=== PATIENT | female | born 1940 | race Caucasian/White ===

== ENCOUNTER 2017-02-08 10:14 | Inpatient (IN) ==
[2017-02-08] MEDS ORDERED: NS 500 ML IV ONE (10:34)
--- NOTE | 2017-02-08 11:04 | Diag Imaging Result Doc PS360 ---
EXAM: CHEST-PORTABLE HISTORY: cough/weakness TECHNIQUE: AP portable at 1045 COMMENT: Compared to 06/25/2013 the opacity previously demonstrated laterally over the left upper lobe is no longer present. The heart size and pulmonary vascularity are within normal limits. IMPRESSION: No acute disease. Electronically signed by Paco Smith 02/08/2017 11:01 AM
[2017-02-08 11:54] LABS: INR 0.98; PROTIME 10.3 Seconds (9.2-11.7); PTT 33.5 Seconds (22.0-36.0)
[2017-02-08 12:05] LABS: ALBUMIN 3.7 g/dL (3.5-5.0); CALCIUM 8.7 mg/dL (8.8-10.2); MAGNESIUM 1.3 mg/dL (1.5-2.7); TOTAL BILIRUBIN 0.84 mg/dL (0.20-1.00); TOTAL PROTEIN 8.1 g/dL (6.3-8.3)
[2017-02-08 12:11] LABS: BASO% 0.1 % (0.0-0.8); HEMATOCRIT 36.3 % (37.0-47.0); HEMOGLOBIN 12.2 g/dL (12.0-16.0); IMM GRAN# 0.06 X1000 (0.0-0.04); IMM GRAN% 0.3 % (0.0-0.5); LYMPH# 0.43 X1000 (1.2-3.4); LYMPH% 2.5 % (20.5-51.1); MANUAL DIFF NEEDED? NO; MCH 31.4 PG (27-31); MCHC 33.6 g/dL (33-37); MCV 93.3 FL (81-99); MONO# 1.48 X1000 (0.11-0.59); MONO% 8.5 % (1.7-9.3); MPV 10.4 FL (7.4-10.4); NEUT% 88.6 % (42.2-75.2); PLT 291 X1000 (130-400); RBC 3.89 XMIL (4.2-5.4)
--- NOTE | 2017-02-08 12:18 | Diag Imaging Result Doc PS360 ---
EXAM: CT HEAD W/O CONTRAST HISTORY: weakness TECHNIQUE: CT of the head without contrast with dose reduction (clarity.) COMMENT: There has been previous frontotemporal craniotomy. There is a aneurysm clip superoposterior to the anterior clinoid on the left. There is some encephalomalacia in the temporal tip on the left. There is extensive encephalomalacia in the insula and basal ganglia on the left. There is ex vacuo enlargement of the left lateral ventricle present and there is lucency in the morfin radiata and centrum semiovale on the left as well. IMPRESSION: Postsurgical and encephalomalacic changes on the left. No evidence of acute disease. Electronically signed by Paco Smith 02/08/2017 12:15 PM
--- NOTE | 2017-02-08 12:25 | Diag Imaging Result Doc PS360 ---
EXAM: CT ABDOMEN/PELVIS W/O CONTRAST HISTORY: abd pain TECHNIQUE: CT urogram without contrast COMMENT: There are no previous studies. There is no evidence of acute disease in the visualized portion of the chest. There are granulomata in the liver and spleen. Both adrenal glands are somewhat enlarged in appearance suggesting hyperplasia. There is no evidence of hydronephrosis although there may be some parapelvic cysts or localized caliectasis in the lower pole of the right kidney. No stones are demonstrated. The urinary bladder is slightly distended. There is no evidence of ureterolithiasis or bladder stones. The appendix is not identified. There is been cholecystectomy. There is no evidence of bowel obstruction. There is no evidence of free fluid. There is some stranding in the retroperitoneal soft tissues anterior to the infrarenal abdominal aorta. The aorta is calcified but not distended in appearance. The possibility of retroperitoneal fibrosis cannot be excluded. No acute bony abnormalities are present. There is dense calcification the mitral valve annulus. IMPRESSION: No evidence of stones or obstruction. Nonspecific and chronic findings as described above. Electronically signed by Paco Smith 02/08/2017 12:22 PM
[2017-02-08] MEDS: NS 1,000 ML IV SCH (12:37)
[2017-02-08 12:58] LABS: URINE CULTURE NEEDED? NO; URINE MICRO REVIEW NEEDED? NO; URINE SOURCE CATH
[2017-02-08 13:01] LABS: BILIRUBIN URINE NEGATIVE (NEGATIVE); BLOOD URINE NEGATIVE (NEGATIVE); COLOR YELLOW; GLUCOSE URINE 200 mg/dL (NEGATIVE); LEUKOCYTES URINE NEGATIVE (NEGATIVE); NITRITE URINE NEGATIVE (NEGATIVE); PH URINE 6.5; PROTEIN URINE 200 mg/dL (NEGATIVE); SP GRAVITY URINE 1.013; TURBIDITY URINE CLEAR (CLEAR); UR EPITHELIAL CELLS <10 /HPF (<10); URINE BACTERIA NEGATIVE /HPF; URINE RBC <10 /HPF (<10); URINE WBC <10 /HPF (<10); UROBILINOGEN URINE NORMAL (NORMAL)
--- NOTE | 2017-02-08 14:15 | PROVIDER DOCUMENTATION ---
This chart was entered by Rima Wolf Scribe, acting as scribe for Shane Light PA. HPI-General Adult - General Chief Complaint: Weakness Stated Complaint: welfare check Time Seen by Provider: 02/08/17 10:21 Source: patient Allergies/Adverse Reactions: Patient Allergies Allergy/AdvReac Type Severity Reaction Status Date / Time Penicillins AdvReac nausea and Verified 02/08/17 11:22 vomiting Home Medications: Home Medication List Medication Instructions Recorded Confirmed Last Taken Type Metformin E.r. [Glucophage Xr] 1,500 mg PO QHS 06/25/13 02/08/17 06/24/13 20:00 History Pravastatin Sodium 40 mg PO DAILY 06/25/13 02/08/17 06/24/13 20:00 History Albuterol Sulfate [Proair Hfa] 8.5 gm IH PRN PRN 02/08/17 02/08/17 Unknown History Citalopram [Celexa] 40 mg PO DAILY 02/08/17 02/08/17 Unknown History Glimepiride 2 mg PO DAILY 02/08/17 02/08/17 Unknown History Lisinopril 5 mg PO DAILY 02/08/17 02/08/17 Unknown History Polyethylene Glycol 3350 17 gm PO DAILY 02/08/17 02/08/17 Unknown History [Polyethylene Glycol] - History of Present Illness -Gen Adult Nature of Presenting Problems: pt is a 76 year old female who came to the ED with a cc of weakness and cough for three days. Pt was found in the bed with bowel all over her because she has been in the bed for three days. Location of Pain/Injury: reports: abdomen Pain Radiation: reports: no radiation Quality of Pain: reports: cramping Severity: reports: moderate Onset/Duration: reports: 3 days ago Timing: reports: still present Context/Activities at Onset: reports: none Modifying Factors: improves with: nothing Associated Symptoms: reports: weakness Similar Symptoms Previously?: No Recently seen or treated by another doctor?: No Review of Systems - Adult - REVIEW OF SYSTEMS - ADULT Constitutional: reports: cecilia. denies: chills, fever Ears, Nose, Mouth & Throat: denies: sinus problem, loose teeth Cardiovascular: denies: irregular heart rate, syncope Gastrointestinal: reports: abdominal pain. denies: diarrhea, nausea, vomiting Genitourinary: denies: hematuria, urgency Past History - Adult - PAST MEDICAL HISTORY-ADULT Review of Records: reports: Old Records Reviewed, Nursing Assessment Review Major Childhood Illnesses: reports: denies history Cardiovascular: reports: denies history Respiratory: reports: denies history Gastrointestinal: reports: denies history Obstetrical/Gynecological: reports: denies history Genitourinary: reports: denies history Musculoskeletal: reports: denies history Neurological: reports: denies history Endocrine/Immune: reports: Diabetes Other Conditions: reports: denies history - IMMUNIZATION STATUS Childhood Immunizations: See Nurse Assessment Flu Vaccine: See Nurse Assessment - FAMILY HISTORY Family History: reviewed, not pertinent Physical Exam-General - PHYSICAL EXAM-ADULT Initial Vital Signs Reviewed: Yes - CONSTITUTIONAL General Appearance: alert, mild distress - EYES Eyes: PERRL/EOMI, pink conjunctivae - HEAD, EARS, NOSE, MOUTH & THROAT HENMT: normocephalic/atraumatic, moist mucous membranes - NECK Neck: non-tender, full range of motion - RESPIRATORY Respiratory: chest non-tender, lungs clear, normal breath sounds - CARDIOVASCULAR Cardiovascular: normal peripheral pulses, regular rate, rhythm - GASTROINTESTINAL (ABDOMEN) Abdominal Exam: normal bowel sounds, non tender, soft - MUSCULOSKELETAL Back Exam: normal inspection, no CVA tenderness Extremity: normal range of motion, non-tender - SKIN Integumentary: normal color, normal turgor - NEUROLOGIC Neurologic: grossly normal - PSYCHIATRIC Psych/Mental Status: normal mood/affect, normal thought content, normal thought process, oriented x 3 Progress - PLAN OF CARE/RESULTS Progress/Plan/Lab Results: Vital Signs - 8 hr 02/08/17 10:55 Temperature 99.6 F Pulse Rate 96 H Respiratory Rate 20 Blood Pressure 148/64 O2 Sat by Pulse Oximetry 93 L Laboratory Results - last 24 hr 02/08/17 02/08/17 02/08/17 11:26 11:26 11:26 WBC 17.39 H RBC 3.89 L Hgb 12.2 Hct 36.3 L MCV 93.3 MCH 31.4 H MCHC 33.6 RDW Std Deviation 12.2 Plt Count 291 MPV 10.4 Immature Gran % (Auto) 0.3 Neut % (Auto) 88.6 H Lymph % (Auto) 2.5 L [place] % (Auto) 8.5 Eos % (Auto) 0.0 Baso % (Auto) 0.1 Immature Gran # (Auto) 0.06 H Neut # (Auto) 15.40 H Lymph # (Auto) 0.43 L [place] # (Auto) 1.48 H Eos # (Auto) 0.00 Baso # (Auto) 0.02 PT INR PTT (Actin FS) Sodium 127 L Potassium 4.0 Chloride 87 L Carbon Dioxide 23 L Anion Gap 17 BUN 21 Creatinine 1.9 H Estimated GFR/1.73 m2 26 BUN/Creatinine Ratio 11 Glucose 239 H Calculated Osmolality 266 Calcium 8.7 L Magnesium 1.3 L Total Bilirubin 0.84 AST 55 H ALT 33 Alkaline Phosphatase 86 Creatine Kinase 79 Troponin T Zqa-X-Lyskasoydor Pept 7897 H Total Protein 8.1 Albumin 3.7 Globulin 4.4 Albumin/Globulin Ratio 0.8 Urine Source Urine Color Urine Turbidity Urine pH Ur Specific [place] Urine Protein Ur Glucose (Stick) Ur Ketones (Stick) Urine Blood Urine Nitrite Urine Bilirubin Urobilinogen Dipstick Urine Leukocytes Urine WBC (Auto) Urine RBC (Auto) U Epithel Cells (Auto) Urine Bacteria (Auto) 02/08/17 02/08/17 02/08/17 11:26 11:26 12:41 WBC RBC Hgb Hct MCV MCH MCHC RDW Std Deviation Plt Count MPV Immature Gran % (Auto) Neut % (Auto) Lymph % (Auto) [place] % (Auto) Eos % (Auto) Baso % (Auto) Immature Gran # (Auto) Neut # (Auto) Lymph # (Auto) [place] # (Auto) Eos # (Auto) Baso # (Auto) PT 10.3 INR 0.98 PTT (Actin FS) 33.5 Sodium Potassium Chloride Carbon Dioxide Anion Gap BUN Creatinine Estimated GFR/1.73 m2 BUN/Creatinine Ratio Glucose Calculated Osmolality Calcium Magnesium Total Bilirubin AST ALT Alkaline Phosphatase Creatine Kinase Troponin T < 0.010 Jfl-H-Cduhpjwysqu Pept Total Protein Albumin Globulin Albumin/Globulin Ratio Urine Source CATH Urine Color YELLOW Urine Turbidity CLEAR Urine pH 6.5 Ur Specific [place] 1.013 Urine Protein 200 A Ur Glucose (Stick) 200 A Ur Ketones (Stick) 40 A Urine Blood NEGATIVE Urine Nitrite NEGATIVE Urine Bilirubin NEGATIVE Urobilinogen Dipstick NORMAL Urine Leukocytes NEGATIVE Urine WBC (Auto) <10 Urine RBC (Auto) <10 U Epithel Cells (Auto) <10 Urine Bacteria (Auto) NEGATIVE Orders Category Date Time Status Cardiac Monitoring DIRECTED Care 02/08/17 10:34 Active Saline Loc NOW Care 02/08/17 10:[address] ABDOMEN/PELVIS W/O CONTRAST [CT] Stat Exams 02/08/17 10:[address] HEAD W/O CONTRAST [CT] Stat Exams 02/08/17 10:34 Completed cxr [CHEST-PORTABLE] [RAD] Stat Exams 02/08/17 10:40 Completed BLOOD CULTURE [BLDCUL] Stat Lab 02/08/17 13:21 Uncollected CBC WITH ELECTRONIC DIFF [HEME] Stat Lab 02/08/17 11:26 Completed CK PROFILE [SP CHEM] Stat Lab 02/08/17 11:26 Completed COMPREHENSIVE METABOLIC PANEL [CHEM] Stat Lab 02/08/17 11:26 Completed LACTATE, PLASMA [CHEM] Stat Lab 02/08/17 13:21 Uncollected LIPASE [CHEM] Stat Lab 02/08/17 13:21 Ordered MAGNESIUM [CHEM] Stat Lab 02/08/17 11:26 Completed PRO B-NATRIURETIC PEPTIDE Stat Lab 02/08/17 11:26 Completed PROTIME WITH INR [COAG] Stat Lab 02/08/17 11:26 Completed PTT [COAG] Stat Lab 02/08/17 11:26 Completed TROPONIN T Stat Lab 02/08/17 11:26 Completed UA NIMS W/REFLEX CULT [URINALYSIS] Stat Lab 02/08/17 12:41 Completed 0.9% Sodium Chloride Inj [Ns] 1,000 ml Med 02/08/17 12:37 Active IV 100 mls/hr 0.9% Sodium Chloride Inj [Ns] 500 ml Med 02/08/17 10:34 Discontinued IV Wide Open EKG [EKG] Stat Ther 02/08/17 10:34 Ordered VSS. Patient feeling with fluids. No focal neurolgic deficit. Unclear etiology of leukocytosis. Her abd is soft. Will admit for IV hydration and monitoring. Result Diagrams: 02/08/17 11:26 02/08/17 11:26 - EKG 1 Time of EKG reading by physician:: 10:29 EKG Read and Signed by:: Francisco Metcalf EKG Interpretation (*Must complete 3 of following elements*): Abnormal Rate: 87 (prolonged QT) Rhythm: sinus rhythm w premature supraventricular complexes - XRAY 1 XRAY Study: Chest Impression: Normal - CT/MRI 1 CT Study: Head (POSTSURGICAL AND ENCEPHALOMALACIA CHANGES ON THE LEFT. NO ACUTE FINDINGS) 2 CT Study: Abdomen (NO EVIDENCE OF STONES OR OBSTRUCTION) - CONSULTS/PCP/HOSPITALIST Notification #1 *Consult/PCP/Hospitalist*: CADEN Carrera for Dr. Mcclure Time Discussed: 13:33 Consult Disposition: Admit Departure - Departure Date of Disposition Decision: 02/08/17 Time of Disposition Decision: 13:33 DIAGNOSIS: Dehydration, Unable to ambulate Abdominal pain Qualifiers: Abdominal location: unspecified location Qualified Code(s): R10.9 - Unspecified abdominal pain Disposition: ADMITTED INPATIENT 09 Certified Medical Emergency: Emergent Condition: Stable Referrals and Follow-Ups: Jared Hutchinson MD [Primary Care Provider] - - Critical Care Note This patient required my direct & personal management of CC.: No Attestation - Physician/ YURY Attestation Patient care was provided by Advanced Practice Provider:: Yes Advanced Practice Provider documentation review:: The Mid-level provider documentation, treatment plan and medical decision making was reviewed by the physician who agrees with all treatment and medical decision making by the MLP. The physician spent face to face time with patient:: Yes Advanced Practice Provider documentation review:: Supervising physician onsite and consulted in the evaluation and care of this patient. The physician did have a face to face encounter with the patient. This chart was documented by the indicated scribe, (Rima Wolf Scribe) and accurately reflects the services I performed and decisions made by me, Shane Light PA, as attested by the provider's signature.
[2017-02-08] MEDS ORDERED: MAGNESIUM SULFATE 2 GM/S.W.I. 2 GM/50 ML IVPB IV ONE (14:26)
--- NOTE | 2017-02-08 14:49 | HISTORY AND PHYSICAL ---
PRIMARY CARE PROVIDER: Dr. Calero. HISTORY OF PRESENT ILLNESS: The patient was last here on 06/25/2013. According to family, one of her daughters was living with her until the first part of this month, moved out, but she gets someone who checks on her at least once a day. Apparently daughter was concerned when she would not answer the phone. Called paramedics; they came and found her apparently laying on the floor. They felt like she had started to try make her coffee that morning, not sure how long she was down on the floor. They did not see any sign of contusion or a laceration. No sign of fracture. She is not sure if she passed out; she just knows she woke up on the floor. One of the daughters states that she is usually very alert and oriented; at the present time she is aware of who she is and she does know the month, and where she is at [facility]. She did not know the year. Daughter says she is a little slow, seems more confused. Did not note any focal neurologic deficits. Moving her arms and legs. Her strength seems to be good in her extremities. Denies any visual changes. They did not report incontinence of bowel or bladder, but they did note that she was laying in feces when they got there, but there is no history in the past couple days and past couple weeks of incontinence. PAST MEDICAL HISTORY: Diabetes mellitus type 2. Apparently she has had a brain aneurysm with surgical repair, and she has had an appendectomy and I believe cholecystectomy. FAMILY HISTORY: There is no history of seizures or neurologic pathology. SOCIAL HISTORY: She has a couple daughters that are caring for her and live close by. She denies any tobacco, alcohol or illicit drugs. ALLERGIES: Penicillin. MEDICATIONS: She was on 4 medicines: I think it is her metformin and pravastatin. Not sure if she was taking her Celexa; I think that was the other one. REVIEW OF SYSTEMS: General: According to the daughter, she is not able to give us much history. They have not noticed weight gain or loss. No fever or chills. No change in visual or hearing acuity. Neck: Neck arthralgia. Respiratory: No increased work of breathing or dyspnea. Cardiovascular: No chest pain or tachy palpitation. GI: Unremarkable. : Unremarkable. Musculoskeletal/neurologic: No focal changes. They did note that she had laid in feces, so there must have been some fecal incontinence. PHYSICAL EXAMINATION: VITAL SIGNS: Exam in the emergency room revealed temperature 99.6 degrees, pulse 77, respirations 23, blood pressure 107/45. HEENT: Pupils are equal and round. CVP less than 6 cm. LUNGS: Clear in all lung zhu. CARDIOVASCULAR EXAM: Regular rhythm and rate without murmur or S3. ABDOMEN: Soft, nontender, nondistended. Positive bowel sounds. No hepatosplenomegaly. EXTREMITIES: Without clubbing, cyanosis, or edema. NEUROLOGIC EXAM: Cranial nerves 2-12 intact. Motor strength 4/5 in all motor groups. Appears to be symmetrical. Did not appreciate any sensory deficit. LABS: White count 17,390, hematocrit 36, platelet count 291,000. Sodium 127, potassium 4.0, chloride 87, bicarbonate 23, BUN 21, creatinine 1.9. Blood sugar 239, magnesium 1.3. Transaminases: AST was 55, ALT 33, troponin less than 0.01, CPK 79. ProBNP was 7897. Urinalysis unremarkable. X-RAYS: Abdominal and pelvic CT: No evidence of stones or obstruction. Nonspecific chronic changes. There is granulomata on the liver/spleen. Both adrenal glands are somewhat enlarged, appearance suggestive of hyperplasia. No evidence of hydronephrosis. There was some parapelvic cyst. There is no evidence of ureterolithiasis or bladder stones. There is some stranding of the retroperitoneal soft tissue and the infrarenal abdominal aorta. The aorta is calcified. ASSESSMENT AND PLAN: 1. Metabolic encephalopathy. Something caused a fall, not sure; unsure if this was seizure or this was hypotension based on her blood pressures now. Of course, her blood pressure is a little on the low side. We are going to give her some fluids. We are going to watch her on a director cardiac. I am going to give her normal saline as she has some hyponatremia; it appears to be volume depletion hyponatremia. She does appear to be intravascularly volume depleted. We are going to supplement her magnesium. 2. Creatinine was 1.9. Looking at creatinine, she had a 0.9 back in June, so I think this is probably prerenal. 3. Hypomagnesemia. Will give some magnesium 2 g intravenous. Put her on some Mag-Ox 800 mg twice a day. We will check a T4 and TSH, Cortisol, B 12 and folate level. 4. History of a subarachnoid bleed. CT of the head without contrast shows postsurgical encephalomalacia on the left. No evidence of acute disease. She has had a previous frontal temporal craniotomy. Chest x-ray: No acute disease. 5. Diabetes mellitus. We will follow her sugars. Check hemoglobin A1c. Also check a lipid profile in the morning, and I will put her on a sliding scale. MEDICATIONS AT HOME: As far as her medications at home, apparently she is not taking the Celexa. We will hold that. We will hold the glimepiride. Going to hold the metformin. We will give her polyethylene glycol, which is MiraLAX 17 g daily, and pravastatin. cc: Ralph Mcclure MD
[2017-02-08 15:10] LABS: IRON SATURATION 4 %; TIBC 261 ug/dL; TOTAL IRON 11 ug/dL (49-151); UNBOUND IRON 250 ug/dL (112-346)
[2017-02-08 15:11] LABS: HEMOGLOBIN A1C 6.6 % (4.8-6.0)
[2017-02-08 15:29] LABS: FREE T4 1.15 ng/dL (0.93-1.70)
[2017-02-08] MEDS ORDERED: ZOFRAN IV PRN (16:57)
[2017-02-08] MEDS: HUMULIN R SUBQ SCH ×2 (18:09→22:52)
[2017-02-09] MEDS: NS 1,000 ML IV SCH ×3 (00:17→19:11)
[2017-02-09] MEDS: TYLENOL PO PRN (01:31)
[2017-02-09] MEDS ORDERED: APRESOLINE IV PRN ×2 (02:20→02:25)
[2017-02-09] MEDS ORDERED: VANCOMYCIN 1 GM/NS 1 GM/250 ML IVPB IV ONE (04:46)
[2017-02-09] MEDS ORDERED: VANCOMYCIN IV PER PHARMACY MISC SCH (05:00)
[2017-02-09] MEDS ORDERED: VANCOMYCIN 1,250 MG in NS 250 ML IV ONE (06:00)
[2017-02-09] MEDS: HUMULIN R SUBQ SCH ×4 (06:29→21:11)
[2017-02-09] MEDS: PRILOSEC PO SCH (06:33)
[2017-02-09 07:18] LABS: MANUAL DIFF NEEDED? NO
[2017-02-09 07:36] LABS: BASO% 0.1 % (0.0-0.8); HEMATOCRIT 30.7 % (37.0-47.0); HEMOGLOBIN 10.1 g/dL (12.0-16.0); IMM GRAN# 0.03 X1000 (0.0-0.04); IMM GRAN% 0.2 % (0.0-0.5); INR 0.96; LYMPH# 0.58 X1000 (1.2-3.4); LYMPH% 4.6 % (20.5-51.1); MCH 31.3 PG (27-31); MCHC 32.9 g/dL (33-37); MONO# 2.11 X1000 (0.11-0.59); MONO% 16.6 % (1.7-9.3); MPV 10.9 FL (7.4-10.4); NEUT% 78.5 % (42.2-75.2); PLT 234 X1000 (130-400); PTT 32.6 Seconds (22.0-36.0); RBC 3.23 XMIL (4.2-5.4)
[2017-02-09 07:47] LABS: ALBUMIN 3.1 g/dL (3.5-5.0); CALCIUM 7.8 mg/dL (8.8-10.2); MAGNESIUM 2.1 mg/dL (1.5-2.7); POTASSIUM 4.3 mmol/L (3.5-5.1); TOTAL BILIRUBIN 0.65 mg/dL (0.20-1.00); TOTAL PROTEIN 6.9 g/dL (6.3-8.3)
[2017-02-09] MEDS ORDERED: PRILOSEC PO SCH (09:00)
--- NOTE | 2017-02-09 14:40 | ECHO REPORT ---
ORDER DATE: 02/08/2017 INDICATION: 1. Previous tobacco use. 2. Syncope. 3. History of brain aneurysm. 4. Diabetes. FINDINGS: 1. Right atrium appears normal in size. 2. Mild tricuspid regurgitation. RV systolic pressure of 50. 3. Normal RV size and systolic function. 4. No significant pulmonic insufficiency. 5. Mild left atrial enlargement at 4.5 cm. 6. No mitral prolapse. There is mild mitral annular calcification. Mild mitral regurgitation. 7. Normal LV size, end-diastolic dimension of 3.9. No evidence of left ventricular hypertrophy. Normal to hyperdynamic LV systolic function. Estimated EF of 70%, with normal wall motion. 8. Aortic valve opens well. It is somewhat sclerotic, but there is no evidence of stenosis. The valve appears trileaflet. No evidence of insufficiency. 9. Aorta appears normal in visualized segments. 10. No pericardial effusion seen. cc: MD Debi Griffin CRNP
--- NOTE | 2017-02-09 15:41 | PROGRESS NOTE ---
DATE: 02/09/2017 SUBJECTIVE: Ms. Lund feels better, looks better. She is awake and she was talking to me, answering questions. She is oriented to person, and place and I reminded her of the date and time. OBJECTIVE: Vital signs: Temperature 98.8 degrees, pulse 86, respirations 18, blood pressure 149/48. HEENT: The pupils are equal and round. CVP less than 6 cm. Lungs: Clear in all lung zhu. Cardiovascular: Regular rhythm and rate without murmur or S3. Abdomen: Soft. Skin: Warm and dry. : Urine output 2800 mL. LABORATORY: White count 12,690, hematocrit 30, platelet count 234,000. Chemistry: Sodium 131, potassium 4.3, chloride 96, BUN 26, creatinine 1.4, blood sugar is 138, 143, 129. DIAGNOSTICS: Echocardiogram done yesterday: Right atrium normal. Mild tricuspid regurgitation. Normal right ventricular systolic function. Left ventricular function appears good. Estimated ejection fraction 70%. Hyperdynamic left ventricle. ASSESSMENT AND PLAN: 1. Metabolic encephalopathy. This seems improved, a little bit of hypotension. Giving her back some fluids and appears to be doing better. Her left ventricular function looks good. 2. The creatinine was 1.9, and on presentation I think that is because she was a little bit dry. Creatinine down to 1.4, so heading in the right direction with acute renal injury. 3. Mild hypomagnesemia. We gave her some magnesium and we will continue to supplement electrolytes as needed. 4. History of subarachnoid bleed in the past. CT scan with no acute changes on this presentation. 5. Diabetes mellitus type 2. Sugars appear under good control. I do not see any change in her orders. She is on vancomycin which was started yesterday. Her micro blood cultures are pending. Urinalysis was fairly unremarkable. So maybe we will stop the vancomycin tomorrow. cc: Ralph Mcclure MD
[2017-02-09] MEDS: PRAVACHOL PO SCH (20:55)
[2017-02-10] MEDS: NS 1,000 ML IV SCH ×2 (05:25→17:31)
--- NOTE | 2017-02-10 05:48 | EKG Report ---
Test Performed on : 02/09/2017 07:29:02 AM Test Reason : chest pain Blood Pressure : / mmHG Vent. Rate : 075 BPM Atrial Rate : 075 BPM P-R Int : 208 ms QRS Dur : 068 ms QT Int : 406 ms P-R-T Axes : 073 075 103 degrees QTc Int : 453 ms Normal sinus rhythm. Nonspecific ST abnormality Inferior leads Nonspecific T wave abnormality Lateral leads Abnormal ECG When compared with ECG of 08-FEB-2017 10:29, (Unconfirmed) premature supraventricular complexes. are no longer present Nonspecific T wave abnormality now evident in Lateral leads QT has shortened Confirmed by Demario Jonas MD ([id number]) on 02/12/2017 6:13:34 PM
[2017-02-10] MEDS: HUMULIN R SUBQ SCH ×4 (06:01→23:23)
[2017-02-10] MEDS: PRILOSEC PO SCH (06:33)
--- NOTE | 2017-02-10 06:35 | EKG Report ---
Test Performed on : 02/08/2017 10:29:08 AM Test Reason : No Order in [facility] Blood Pressure : / mmHG Vent. Rate : 087 BPM Atrial Rate : 087 BPM P-R Int : 176 ms QRS Dur : 068 ms QT Int : 424 ms P-R-T Axes : 021 073 062 degrees QTc Int : 510 ms Sinus rhythm. with premature supraventricular complexes. Prolonged QT Abnormal ECG No previous ECGs available Unconfirmed Result
--- NOTE | 2017-02-10 14:34 | PROGRESS NOTE ---
DATE: 02/10/2017 SUBJECTIVE: Recall Ms. Lund as a 76-year-old female, who was admitted by me on February 08. She is a patient Dr. Calero. The patient was last here 06/07/2013. According to the family, the daughters, they found her. She had fallen in the morning, and seemed to be a little confused and very weak. She appeared to have metabolic encephalopathy. She had acute renal insufficiency, acute renal injury and a hypomagnesemia. She does have a distant history of subarachnoid bleed. There was no change in the CAT scan, and no sign that she had dropped her blood sugars. She feels much better. Feels a lot stronger. She is requesting to go home. OBJECTIVE: Vital signs: Temperature 98.8 degrees, pulse 89, respirations 20, blood pressure 174/59. HEENT: Pupils are equal. neck: CVP less than 6 cm. Lungs: Clear in all lung zhu. Cardiovascular: Regular rhythm and rate, without murmur or S3. Abdomen: Soft. Skin: Warm and dry. Genitourinary: Urine output was almost 2 L. LABORATORY: Reviewed and unremarkable from yesterday. Hematocrit 30, stable. Platelet count 234,000, this is after hydration. Chemistries: We will recheck her serum creatinine and electrolytes, but creatinine came down 1.4 yesterday. Echocardiogram, done on February 08: Normal left ventricular size, good ejection fraction at 70%. ASSESSMENT AND PLAN: 1. Metabolic encephalopathy. I think multifactorial, a little bit of hypotension. She was a little dehydrated, had not eaten or drank for probably about 24 hours. Not sure how long she had been on lying on the floor. Echocardiogram shows good left ventricular function. She appears improved. 2. Acute renal injury. Creatinine was 1.9. It has come down to 1.4. We will check electrolytes again in the morning. 3. Mild hypomagnesemia, which is supplement and improved. 4. Diabetes mellitus type 2. Sugars appear under good control. She would like to try and go home tomorrow, and I think that is reasonable. cc: Ralph Mcclure MD
[2017-02-10] MEDS: TYLENOL PO PRN (15:30)
[2017-02-10] MEDS: VENTOLIN HFA INH PRN (16:12)
[2017-02-10] MEDS: PRAVACHOL PO SCH (20:18)
[2017-02-11] MEDS: NS 1,000 ML IV SCH ×2 (01:01→03:12)
[2017-02-11] MEDS ORDERED: VANCOMYCIN 1 GM/NS 1 GM/250 ML IVPB IV SCH (06:00)
[2017-02-11] MEDS: PRILOSEC PO SCH (06:54)
[2017-02-11] MEDS: HUMULIN R SUBQ SCH ×3 (07:03→17:11)
[2017-02-11 07:57] LABS: AGAP 12; BUN 11 mg/dL (8-22); CALCIUM 8.1 mg/dL (8.8-10.2); CHLORIDE 100 mmol/L (98-107); COSMO 272; MAGNESIUM 1.8 mg/dL (1.5-2.7); POTASSIUM 4.1 mmol/L (3.5-5.1); SODIUM 136 mmol/L (136-145); TCO2 24 mmol/L (25-35)
[2017-02-11] MEDS: KEFZOL 1 GM/D5W 1 GM/50 ML IVPB IV SCH ×2 (13:11→20:32)
--- NOTE | 2017-02-11 14:04 | PROGRESS NOTE ---
DATE: 02/11/2017 SUBJECTIVE: Today Ms. Lund referred to be doing fine, denies of any complaints. No chest pain. No shortness of breath. No vomiting. No diarrhea. She has been she has been doing physical therapy. When I requested for Ms Lund about her allergy to penicillin she said it only just make her vomit but no rash and no anaphylactic properties. OBJECTIVE: Vital signs: Blood pressure is 149/58, pulse of 81, respiration is 20, temperature is 98.1 degrees. General: Ms. Lund 76-year-old female she is in bed, not in any distress. HEENT: Mucosa is pink and moist. Anicteric. Acyanotic. Neck: Supple. Chest: Was clear. Cardiovascular: Regular rate and rhythm. There is no murmurs, no rubs, no gallops. Abdomen: Is soft, minimally tender all over but no bowel sounds are present. Extremities: No pedal edema. 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 There is no focal neurological deficit. LABORATORY DATA: No CBC for today. Chemistry is reviewed and is completely unremarkable. Blood culture shows strep agalactia, strep B bacteremia. An echocardiogram which was done on presentation was unremarkable. ASSESSMENT: 1. Generalized weakness on presentation. 2. Altered mental status likely due to metabolic encephalopathy improved. 3. Strep B bacteremia. Patient echocardiogram is negative. Patient refers to have only nausea and vomiting sensation to penicillins. We would therefore put her on Ancef and change her from vancomycin. 4. Acute kidney injury secondary to dehydration resolved. 5. Diabetes mellitus controlled. 6. Carotid artery disease. I understand patient has severe carotid stenosis. We are still waiting for the studies to come up for us to know exactly what is the critical nature of the disease and then go from there. So in general I think Ms. Lund is doing a lot better. She lives by herself with her cat. Clinically she seems to have recovered from her acute disease. Will switch her antibiotics to Ancef. If she tolerates this will be able to put her on p.o. medication and discharge her tomorrow. cc: Robert Vieyra MD
[2017-02-11] MEDS: PRAVACHOL PO SCH (20:32)
[2017-02-12] MEDS ORDERED: CALMOSEPTINE OINTMENT ONE (01:38)
[2017-02-12] MEDS: KEFZOL 1 GM/D5W 1 GM/50 ML IVPB IV SCH ×3 (06:38→21:33)
[2017-02-12] MEDS: PRILOSEC PO SCH (06:39)
[2017-02-12 07:06] LABS: MANUAL DIFF NEEDED? NO
[2017-02-12 07:20] LABS: BASO% 0.4 % (0.0-0.8); EOS# 0.04 X1000 (0.0-0.7); EOS% 0.6 % (0.0-10.0); HEMOGLOBIN 10.4 g/dL (12.0-16.0); IMM GRAN# 0.03 X1000 (0.0-0.04); IMM GRAN% 0.4 % (0.0-0.5); LYMPH# 1.32 X1000 (1.2-3.4); LYMPH% 18.9 % (20.5-51.1); MCH 30.8 PG (27-31); MCHC 32.5 g/dL (33-37); MCV 94.7 FL (81-99); MONO# 1.14 X1000 (0.11-0.59); MONO% 16.3 % (1.7-9.3); MPV 10.7 FL (7.4-10.4); NEUT% 63.4 % (42.2-75.2); PLT 283 X1000 (130-400); RBC 3.38 XMIL (4.2-5.4)
[2017-02-12] MEDS: HUMULIN R SUBQ SCH ×4 (07:45→21:35)
[2017-02-12 07:49] LABS: AGAP 13; BUN 9 mg/dL (8-22); CALCIUM 8.7 mg/dL (8.8-10.2); CHLORIDE 100 mmol/L (98-107); COSMO 276; POTASSIUM 3.7 mmol/L (3.5-5.1); SODIUM 139 mmol/L (136-145); TCO2 26 mmol/L (25-35)
--- NOTE | 2017-02-12 12:41 | Carotid Study ---
DATE: 02/08/2017 PROCEDURE: Carotid duplex imaging. REFERRING PHYSICIAN: CADEN Zimmerman. INTERPRETING PHYSICIAN: Donta Nash MD. TECH: [place]. INDICATIONS: The patient has syncope and altered mental status. Carotid imaging is performed. OBSERVED DATA RIGHT LEFT Brachial Blood Pressure Carotid Pulse Bruits: Carotid/Sub DIAGRAM OF ULTRASOUND IMAGING R L RIGHT INT EXT INT EXT LEFT Abdirahman (cm/s) Abdirahman (cm/s) Subclavian 194/21 Subclavian 145/12 CCA Proximal 89/19 CCA Proximal 135/24 CCA Distal 78/12 CCA Distal 116/20 Bulb 80/16 Bulb 77/11 ICA Proximal 343/73 ICA Proximal 203/48 ICA Mid 136/29 ICA Mid 164/39 ICA Distal 63/17 ICA Distal 99/23 ECA 104/17 ECA 124/21 Vertebral 116/30 A Vertebral 73/21 A ICA/CCA Ratio 3.8 ICA/CCA Ratio 1.5 % Stenosis 60-79 % Stenosis 60-79 FINDINGS: There is irregular calcific plaque in the carotid bulbs bilaterally. INTERPRETATION: Irregular calcific plaque in both carotid bulbs. The right side appears to be somewhat worse and is nearing the 80% davey. There remains antegrade vertebral flow bilaterally. cc: MD Debi Garcia CRNP
--- NOTE | 2017-02-12 16:05 | PROGRESS NOTE ---
DATE: 02/12/2017 SUBJECTIVE: Today, Ms. Lund refers to be doing relatively fine. She denies any complaints. OBJECTIVE: Vital Signs: Blood pressure is 168/74, pulse of 74, respirations 16 , temperature 98.7 degrees. General: Ms. Lund is a 76-year-old female. She is in bed , not in any distress. HEENT: Mucosa is pink and moist. Anicteric. Acyanotic. Neck: Supple. I did not appreciate any carotid bruit. Lungs: Good air entry bilaterally. No crepitations. No rhonchi. Cardiovascular: Regular rate and rhythm. No murmurs, no rubs, no gallops. Abdomen is soft, nontender. Bowel sounds are present. Extremities: No pedal edema. 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 There is no focal neurological deficit. LABORATORY DATA: CBC 6.98. Hemoglobin is 10.4, platelet count of 283,000. Chemistry is also reviewed and completely unremarkable. Glucose is 99 early this morning. The carotid report is still not back. I called and there is an 80%-90% occlusion in the right carotid and the left has 60%-70%. ASSESSMENT: 1. Generalized weakness on presentation secondary to underlying bacteremia. 2. Altered mental status due to toxic encephalopathy, improved. 3. Strep B bacteremia. Echo negative. The patient has been started on Ancef, and she seems to be doing a lot better. 4. Acute kidney injury secondary to dehydration, improved. 5. Diabetes mellitus, controlled. 6. Bilateral carotid stenosis with critical findings on the right. Patient is pending evaluation from surgery. In general, I think Ms. Lund is clinically stable. We repeated a blood culture to make sure that we have a documented negative blood before she goes home. She is clinically improved. We will also consult surgery to evaluate her for possible right endarterectomy. I have started the patient on aspirin and statin. If the blood culture tomorrow is negative, we will be able to discharge the patient home and let her follow up with surgery on an outpatient basis. I have discussed this plan with the patient as well as the daughter who was at the bedside at the time of the encounter. cc: Robert Vieyra MD MTDD
--- NOTE | 2017-02-12 17:33 | CONSULTATION ---
DATE OF CONSULTATION: 02/12/2017 CHIEF COMPLAINT: Carotid stenosis. HISTORY: A 76-year-old, pleasant white female, who was admitted on the after a drop attack. She was found in the floor at home. She had failed to answer her phone, therefore her family sought attention for her. In questioning her, she does not fully remember the details. She denies any loss of function of her hands, arms or legs. She denies any similar episode where she lost function of either arm or either leg. She does take aspirin regularly. PAST MEDICAL HISTORY: Pertinent for type 2 diabetes, history of an aneurysm repair many years ago, appendectomy and cholecystectomy. MEDICATIONS: Listed. FAMILY HISTORY: No family history of seizures. SOCIAL HISTORY: She lives alone, but has daughters close by. Denies tobacco, alcohol or drug use. ALLERGIES: She is allergic to penicillin. REVIEW OF SYSTEMS: Pertinent for no lateralizing signs or symptoms neurologically. No chest pain. PHYSICAL EXAMINATION: Vital Signs: Her temperature is 99 degrees, heart rate 83 and regular, respiratory rate 16, blood pressure 166/44. She is normocephalic. She does have bilateral carotid bruits a little bit lateral on the right. She has bilateral breath sounds. Heart: Regular rate and rhythm. Abdomen: Soft and nontender. Extremities Femoral pulses are present. She has +5/+5 strength in all 4 extremities. STUDIES: Hemoglobin 10.4, BUN 90 and creatinine 0.8. Her carotid image does show bilateral carotid bulb plaque worse on the right side approaching 80% on the right. ASSESSMENT: Drop attack of uncertain etiology. I do not think her carotids are the cause of her drop attack. She does have carotid disease that is approaching hemodynamic consequence, especially on the right side and I do think this will merit intervention. However, this is not an emergency. I would simply recommend she stay on aspirin and return to see me in followup after discharge from home. She should return to see me in 2 weeks. Thanks for the opportunity to see her. cc: Donta Nash MD
[2017-02-12] MEDS: PRAVACHOL PO SCH (21:54)
[2017-02-13] MEDS: KEFZOL 1 GM/D5W 1 GM/50 ML IVPB IV SCH ×3 (05:33→13:22)
[2017-02-13] MEDS: PRILOSEC PO SCH (06:35)
[2017-02-13] MEDS: HUMULIN R SUBQ SCH ×3 (06:36→11:44)
[2017-02-13 07:50] VITALS: BP 174/50
[2017-02-13] MEDS: VENTOLIN HFA INH PRN (08:34)
[2017-02-13] MEDS ORDERED: ASPIRIN PO SCH (09:00)
[2017-02-13] MEDS ORDERED: KEFLEX PO SCH (21:00)
[2017-02-14] MEDS ORDERED: LEVAQUIN PO SCH (09:00)
--- NOTE | 2017-02-14 15:33 | DISCHARGE SUMMARY ---
ADMISSION DATE: 02/08/2017 DISCHARGE DATE: 02/13/2017 CONSULTATIONS: Dr. Donta Nash with General Surgery. PERTINENT PROCEDURES: 1. Abdomen and pelvis CT showed no evidence of stones, obstructions, nonspecific and chronic findings not suggested. 2. 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 No evidence of acute disease. 3. Carotid Doppler showed irregular calcific plaque in both carotid bulbs. The right side appears to be somewhat worse, and is nearing the 80% davey. There remains anterograde and vertebral flow bilaterally. 4. Echocardiogram showed an EF of 70%, with normal wall motion. DISCHARGE DIAGNOSES: 1. Generalized weakness on presentation, secondary to underlying bacteremia. 2. Altered mental status due to toxic encephalopathy, improved. 3. Streptococcal B bacteremia. Echo negative. The patient was started on Ancef and did improve. 4. Acute kidney injury, secondary to dehydration, improved. 5. Diabetes mellitus, controlled. 6. Bilateral carotid stenosis with critical findings on the right. The patient was evaluated by General Surgery, Dr. Nash. He does not believe that she needs emergent right carotid surgery at the moment, and recommends to stay on aspirin and return to follow up with him, after she is discharged home, in 2 weeks. HOSPITAL COURSE: Ms. Lund is a 76-year-old female. Carries a past medical history of diabetes mellitus type 2, apparently a brain aneurysm with surgical repair in the past. According to the family, daughter was concerned when she could not get her mother to answer the phone. She called paramedics. They came and found her lying on the floor. In the ED, the patient was aware of who she was. She knew the month. She knew she was at [facility], although she did not know the year. The daughter at the bedside said she seemed a little slow and confused. Head CT was performed, and did not show any acute findings. White count was 17, hematocrit was 36, platelet count 291,000. Sodium was 127, potassium was 4, BUN 21, creatinine 1.9, blood sugar was 239, was 1.3. Troponin was less than 0.01, CPK was 79. ProBNP was 7897. Urinalysis was unremarkable. Abdomen and pelvis CT showed no evidence of stones or obstruction , nonspecific chronic changes. She was admitted for metabolic encephalopathy. Initiated on normal saline for her hyponatremia. She appeared to be fluid volume depleted, was given 2 g of mag. She had carotid Dopplers that showed irregular calcific plaques and both calcific plaque in both carotid bulbs. The right side somewhat appears to be worse, and is nearing the 80% davey , and there remains anterograde and vertebral flow bilaterally. Echocardiogram showed an EF of 70%, with normal wall motion. Her mentation did improve. She seemed to be back at her baseline; however, her blood culture did grow out a strep B bacteremia. Her echocardiogram was negative. She was initially started on vancomycin from the original GPC, and when it grew out strep B she was changed to Ancef. Dr. Nash did come and evaluate her. He did not feel like she needed any acute surgery, and could follow up with him in 2 weeks after her discharge. We have repeated blood cultures. Send her home on p.o. antibiotics. White count went from 17 to 6. VITAL SIGNS: At the time of her discharge, temperature is 97.9 degrees, heart rate 70, respirations 16, blood pressure 174/50, O2 is 97% on room air. DISCHARGE DIET: Diabetic. DISCHARGE MEDICATIONS: As per Dr. Vieyra. FOLLOWUP: Ms Lund is being discharged home with self-care. She does have a daughter, who lives down the road, who checks on her frequently. She will follow up with Dr. Donta Nash in 2 weeks. She can return to the ED for any worsening of symptoms. Dictated by CADEN Finch for Robert Vieyra MD cc: MD Jared Rios MD Time spent for discharge 35 minutes. SUMEET
== END 2017-02-13 15:27 | disposition home or self-care (01) ==
LOC: SUPCPDRO → ED 10:14 → SUATTDRO 15:28 → EDIPHOLD 15:28 → 3N 16:42
PROVIDERS: ATTEND Internal Medicine